=== PATIENT | male | born 1965 | race Caucasian/White ===

== ENCOUNTER 2016-08-23 14:32 | Emergency (ER) | payer OTHER ==
[~2016-08-23] VITALS: Ht 182.9 cm; Wt 104.3 kg
[~2016-08-23 14:32] MED LIST: DIAZ2 PO; ENOX40P SQ; FERR324T8 PO; HYDR-3580 PO; LISI-363 PO; PRED1TAB PO; PRED20 PO
[2016-08-23 14:33] VITALS: BP 139/95; PULSE 85; RESP 15; TEMP 97.8; O2SAT 99
[2016-08-23] MEDS ORDERED: PRED20 PO (14:57)
[2016-08-23] MEDS ORDERED: INDO50CA PO (14:57)
[2016-08-23] MEDS ORDERED: PERC10TA27 PO (14:57)
--- NOTE | 2016-08-23 14:57 | PD ---
HPI Chief Complaint: Edema Time Seen by Provider: 14:44 Travel History International Travel<30 days: No Contact w/Intl Traveler<30days: No Traveled to known affect area: No History of Present Illness HPI This 51-year-old male is complaining of swelling and pain in his right hand. He has a history of gout and has had attacks like this in the past. 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 He generally takes indomethacin for his gout but has run out of it. His last dose was yesterday. He is having quite a bit of pain now and has not slept at night. He is requesting something for pain and for his gout. He has no other complaints. PFSH Past Medical History Cancer: No Cardiovascular Problems: No Chemotherapy: No Cerebrovascular Accident: No Diabetes: No Diminished Hearing: No Endocrine: No Gout: Yes Genitourinary: No Hepatitis: Yes (HEP A CHILD UNSURE WHAT TYPE) Hiatal Hernia: No Hypertension: Yes Immune Disorder: No Musculoskeletal: Yes (SEVERE GOUT, RIGHT /LEFT KNEE PAIN) Neurologic: No Psychiatric: No Reproductive: No Respiratory: No Thyroid Disease: No ?: Not Past Surgical History Abdominal Surgery: No AICD: No Body Medical Devices: NONE Cardiac Surgery: No Ear Surgery: No Endocrine Surgery: No Eye Surgery: No Genitourinary Surgery: No Joint Replacement: Yes (RT KNEE) Oral Surgery: No Pacemaker: No Thoracic Surgery: No Other Surgery: Yes (RIGHT WRIST) Social History Alcohol Use: No (QUIT 2 WEEKS AGO) Tobacco Use: No Substance Use: No Allergies-Medications (Allergen,Severity, Reaction): Coded Allergies: Allopurinol (Unverified Allergy, Severe, HIVES, DIFFICULTY BREATHING, 08/23) Reported Meds & Prescriptions Reported Meds & Active Scripts Active Valium (Diazepam) 2 Mg Tab 2 Mg PO TID Deltasone 20 Mg Tab (Prednisone) 20 Mg Tab 20 Mg PO DAILY Hydrocodone/Acetaminophen 7.5 mg/325 mg 1 Tab 1 Tab PO Q4H PRN Lovenox (Enoxaparin Sodium) 40 Mg/0.4 Ml Inj 40 Mg SQ Q24H Reported Lisinopril 20 mg (Lisinopril) 20 Mg Tab 1 Tab PO DAILY Ferrous Fumarate 324 (Ferrous Fumarate) 324 Mg Tab 325 Mg PO DAILY Prednisone 1 Mg Tab 20 Mg PO DAILY Review of Systems General / Constitutional: No: Fever, Chills Eyes: No: Diploplia, Blurred Vision HENT: No: Headaches, Vertigo Cardiovascular: No: Chest Pain or Discomfort Respiratory: No: Cough, Shortness of Breath Gastrointestinal: No: Vomiting, Diarrhea Genitourinary: No: Urgency, Frequency Musculoskeletal: Positive: Pain Neurologic: No: Weakness Hematologic/Lymphatic: No: Easy Bruising Physical Exam Narrative GENERAL: Well-developed male SKIN: Focused skin assessment warm/dry. HEAD: Atraumatic. Normocephalic. EYES: Pupils equal and round. No scleral icterus. No injection or drainage. ENT: No nasal bleeding or discharge. Mucous membranes pink and moist. NECK: Trachea midline. No JVD. GASTROINTESTINAL: Abdomen soft, non-tender, nondistended. Hepatic and splenic margins not palpable. MUSCULOSKELETAL: Right hand is diffusely swollen and erythematous. It is quite tender. There is a firm area palpable in the volar wrist which is apparently a tophus. NEUROLOGICAL: Awake and alert. No obvious cranial nerve deficits. Motor grossly within normal limits. Normal speech. PSYCHIATRIC: Appropriate mood and affect; insight and judgment normal. Data Data Last Documented VS Vital Signs Date Time Temp Pulse Resp B/P Pulse Ox O2 Delivery O2 Flow Rate FiO2 08/23/16 14:39 16 08/23/16 14:33 97.8 85 139/95 99 Orders Hydromorphone Pf Inj (Dilaudid Pf Inj) (08/23/16 15:00) Ondansetron Inj (Zofran Inj) (08/23/16 15:00) Prednisone (Deltasone) (08/23/16 15:00) MDM Medical Decision Making Medical Screen Exam Complete: Yes Emergency Medical Condition: Yes Medical Record Reviewed: Yes Differential Diagnosis Differential includes gout, cellulitis, Narrative Course Exam is consistent with gout of the patient says he has had multiple attacks like this. Indocin has not been working for him very well and I will add prednisone to his regimen for a few days. Diagnosis Primary Impression: Acute gouty arthritis Scripts Oxycodone-Acetaminophen (Percocet)10-325 mg Tab1 Tab PO Q4H PRN (PAIN) #20 TAB Ref 0 Prov:Garrett Junior MD 08/23/16 Prednisone 20 Mg Tab60 Mg PO DAILY 3 Days Ref 0 Prov:Garrett Junior MD 08/23/16 Indomethacin 50 Mg Cap50 Mg PO TID #60 CAP Ref 0 Take with food, milk, or antacids to decrease stomach adverse effects. Prov:Garrett Junior MD 08/23/16 Disposition: 01 DISCHARGE HOME Condition: Stable Garrett Junior MD Aug 23, 2016 14:57
[2016-08-23] MEDS ORDERED: predniSONE 20 MG TAB PO ONE (15:00)
[2016-08-23] MEDS ORDERED: HYDROmorphone HCL PF 2 MG/ML VIAL IM ONE (15:00)
[2016-08-23] MEDS ORDERED: ONDANSETRON HCL 4 MG/2 ML VIAL IM ONE (15:00)
[2016-08-23 15:28] VITALS: BP 136/90
== END 2016-08-23 15:28 | disposition home or self-care (01) ==
LOC: PHED 14:32
DX: M10.9 Gout, unspecified (principal)
CPT/HCPCS: 96372; 99284; J1170; J2405; J7512